=== PATIENT | male | born 1965 | race Caucasian/White ===

== ENCOUNTER 2023-08-13 10:36 | Outpatient (OUT) | payer BC, SELFPAY ==
--- NOTE | 2023-08-13 10:56 | ECG_ITS ---
[facility] Test Date: 2023-08-13 Pat Name: ROMELIA CURTIS Department: Room: - Gender: Male Clinical Services Specialist: : [id number] Requested By: [id number] Order Number: [id number] Reading MD: IVAN MEZA Measurements Intervals [place] Rate: 74 P: 48 ME: 194 QRS: -4 QRSD: 105 T: 21 QT: 352 QTc: 391 Interpretive Statements SINUS RHYTHM WARNING: DATA QUALITY MAY AFFECT INTERPRETATION No previous ECG available for comparison Electronically Signed On 08-15-2023 7:37:22 EST by IVAN MEZA
--- NOTE | 2023-08-13 11:49 | PM.PRESUREVA ---
History of Present Illness History of Present Illness Chief complaint: right distal biceps tear Narrative: Patient presents for preadmission testing. Please see HPI from Dr. Fernández dated 08/11/2023. Review of Systems ROS Narrative Please see ROS from Dr. Fernández dated 08/11/2023. PFSH PFS Medical History (Updated 08/13/23 @ 11:51 by Lucie Gaspar NP) Biceps tendon rupture ?S46.219A - Strain of muscle, fascia and tendon of other parts of biceps, unspecified arm, initial encounter (ICD-10) COVID-19 ?U07.1 - COVID-19 (ICD-10) Deep vein thrombosis (2018) ?I82.409 - Acute embolism and thrombosis of unspecified deep veins of unspecified lower extremity (ICD-10) Heartburn ?R12 - Heartburn (ICD-10) Rheumatic fever ?I00 - Rheumatic fever without heart involvement (ICD-10) Surgical History (Updated 08/13/23 @ 11:51 by Lucie Gaspar NP) H/O hand surgery ?Z98.890 - Other specified postprocedural states (ICD-10) S/P tendon repair (11/24/22) ?Z98.890 - Other specified postprocedural states (ICD-10) Family History (Updated 08/13/23 @ 11:14 by Lucie Gaspar NP) Other Family history of COPD (chronic obstructive pulmonary disease) Family history of diabetes mellitus Family history of hypertension Family history of lung cancer Family history of stroke Social History (Updated 08/13/23 @ 11:08 by Lucie Gaspar NP) Within the past year, how often did you have a drink containing alcohol: 2-4 times a month Smoking status: Never smoker Non-prescribed substance use: denies use 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 Highest level of school completed/degree received: Professional degree (MD, FANY, DVM, DDS) Meds Home Medications and Allergies Home Medications Medication Instructions Recorded Confirmed Type aspirin 81 mg tablet,delayed 81 mg PO DAILY 08/13/23 08/13/23 History release (Adult Aspirin Regimen) Allergies Allergy/AdvReac Type Severity Reaction Status Date / Time No Known Drug Allergies Allergy Verified 08/13/23 11:06 Exam Narrative Exam Narrative: Constitutional: Awake, alert, comfortable, well-appearing, nontoxic, interactive, vital signs as charted Head: Normocephalic, atraumatic Neck: Supple, normal appearance, normal range of motion, no meningeal signs, no lymphadenopathy Respiratory: No respiratory distress, breath sounds clear Cardiovascular: Regular rate and rhythm, strong and regular heart tones Skin: No rashes or induration, no lesions, only visible skin inspected Neuro: No neurological deficits, normal sensation Psychiatric: Oriented ?3, normal affect Assessment and Plan Assessment and Plan (1) Biceps tendon rupture: Plan Right distal biceps tendon repair scheduled with Dr. Fernández 08/16/2023.
[2023-08-13 11:58] LABS: Basophils Absolute Auto 0.1 10^3/uL (0.0-0.1); Basophils Percent Auto 0.9 % (0.2-2.0); Eosinophils Absolute Auto 0.4 10^3/uL (0.0-0.7); Eosinophils Percent Auto 5.2 % (0.9-7.0); Hematocrit 47.2 % (42.0-54.0); Hemoglobin 15.4 g/dL (14.0-18.0); Immature Granulocytes Abs Auto 0.03 10^3/uL (0.00-0.03); Immature Granulocytes Pct Auto 0.4 % (0.0-0.5); Lymphocytes Absolute Auto 2.3 10^3/uL (1.2-3.8); Lymphocytes Percent Auto 28.7 % (20.5-60.0); Mean Corpuscular HGB Conc 32.6 g/dL (29.9-35.2); Mean Corpuscular Hemoglobin 30.8 pg (25.9-34.0); Mean Corpuscular Volume 94.4 fL (80.0-94.0); Mean Platelet Volume 10.2 fL (9.5-13.5); Monocytes Absolute Auto 0.8 10^3/uL (0.3-0.8); Monocytes Percent Auto 10.2 % (1.7-12.0); Neutrophils Absolute Auto 4.4 10^3/uL (1.4-6.5); Neutrophils Percent Auto 54.6 % (43.0-75.0); Platelet Count 269 10^3/uL (150-450); Red Cell Distribution Width 13.2 % (11.0-15.0)
[2023-08-13 11:59] LABS: Anion Gap 14.3; BUN Creatinine Ratio 17.8; Calcium 8.9 mg/dL (8.5-10.1); Carbon Dioxide 26.1 mmol/L (21.0-32.0); Chloride 102 mmol/L (98-107); Estimated GFR (African America >60 (>=60); Estimated GFR (Non-African Ame >60 (>=60); Glucose 142 mg/dL (74-106); INR 0.96; Potassium 4.4 mmol/L (3.5-5.1); Prothrombin Time 10.2 sec (9.0-11.6); Sodium 138 mmol/L (136-145)
[2023-08-13 12:10] LABS: Partial Thromboplastin Time 26.2 sec (22.3-36.2)
== END 2023-08-13 10:37 | disposition home or self-care (01) ==
LOC: PST 10:41
PROVIDERS: Visit Provider Orthopaedic Surgery
DX: Z01.818 Encounter for other preprocedural examination (principal)
CPT/HCPCS: 80048; 85025; 85610; 85730; 93005; G0463

== ENCOUNTER 2023-08-16 12:41 | Day surgery (SDC) | payer BC, SELFPAY ==
[2023-08-13 11:34] VITALS: BP 126/85; PULSE 80; RESP 18; TEMP 36.3; O2SAT 100; BMI 42.7
[2023-08-16] VITALS (23 sets, daily range): BP systolic 111–164; BP diastolic 84–104; PULSE 72–94; RESP 13–24; TEMP 35.8–36.6; O2SAT 91–98
[2023-08-16] MEDS: LACTATED RINGER'S SOLUTION 1,000 ML 50 ML IV (13:25)
[2023-08-16] MEDS: CEFAZOLIN SODIUM/DEXTROSE,ISO 2 GM/50 ML PIGGYBACK IV (14:23)
--- NOTE | 2023-08-16 14:28 | PM.ORPRC ---
Procedure Note Date of procedure: 08/16/23 Pre-op diagnosis: Right distal biceps tendon rupture Post-op diagnosis: same as pre-op Procedure: After informed consent was obtained the patient was brought to the operating room where a general anesthetic was administered. The right arm was prepped and draped in usual sterile fashion after placement of a well-padded tourniquet. The arm was elevated, exsanguinated, and the tourniquet was inflated to 225 mmHg. A 4 cm longitudinal incision was made directly overlying the radial tuberosity just distal to the elbow antecubital flexion crease. Blunt dissection was carried down through soft tissue. Medial antebrachial cutaneous nerve was identified and protected throughout the procedure. Biceps tendon was identified and found to be retracted to the elbow joint. A #2 running locking FiberWire suture was placed from the tip of the tendon for 3 cm proximally. The 2 suture ends were then placed through the Arthrex biceps button. Attention was next taken to identify the radial tuberosity. Blunt dissection was carried down to the radial tuberosity. Soft tissue was cleared from the insertion of the biceps tendon. The Arthrex spade tip guidepin for the distal biceps repair was then placed in a bicortical fashion at the appropriate position. A unicortical 8 mm tunnel was created over the top of this with a acorn reamer. Bony debris was irrigated and removed. The biceps button was then passed to the far cortex and flipped. Sutures were pulled pulling the biceps tendon into the tunnel that was created. The sutures were then tied. 1 suture end was then placed through the 7 x 10 mm peek interference screw. The screw was then inserted into the tunnel nicely reinforcing the repair. Sutures were tied over the top of this. Tourniquet was deflated. Wound was irrigated and closed with absorbable suture. Steri-Strips and sterile dressing were placed. A well-padded posterior fiberglass splint was placed. Patient was awakened and brought to the recovery room in stable condition. There were no intraoperative or immediate postoperative complications. Anesthesia: GETA Surgeon: Taj Fernández Estimated blood loss (mL): 3 Pathology: none sent Condition: stable Disposition: PACU
[2023-08-16] MEDS: BUPIVACAINE HCL 0.5% PF 50 MG/10 ML VIAL INJ (15:40)
[2023-08-16] MEDS: HYDROMORPHONE HCL 0.5 MG/0.5 ML SYRINGE IV ×2 (16:12→16:28)
[2023-08-16] MEDS: OXYCODONE HCL 5 MG TABLET 10 MG PO (16:51)
== END 2023-08-16 17:45 | disposition home or self-care (01) ==
PROVIDERS: Visit Provider Orthopaedic Surgery
PROC: (CPT 1714; principal; 2023-08-16 13:40)
DX: S46.211A Strain of muscle, fascia and tendon of other parts of biceps, right arm, initial encounter (principal); Z79.01 Long term (current) use of anticoagulants; Z86.16 Personal history of COVID-19; Z86.718 Personal history of other venous thrombosis and embolism; X58.XXXA Exposure to other specified factors, initial encounter; E66.01 Morbid (severe) obesity due to excess calories; Z68.41 Body mass index [BMI] 40.0-44.9, adult
CPT/HCPCS: 24342; 36415; C1713; J1170; J2704